=== PATIENT | female | born 1995 | race Two or more races ===

== ENCOUNTER 2016-11-08 20:15 | Emergency (ER) | payer OTHER ==
[~2016-11-08] VITALS: Ht 167.6 cm; Wt 63.0 kg
[2016-11-08 20:16] VITALS: BP 122/75
[2016-11-08 21:48] LABS: APPEARANCE,URINE Slightly Cloudy (CLEAR); BILIRUBIN,URINE Negative (NEGATIVE); BLOOD, URINE Large Ery/uL (NEGATIVE); COLOR,URINE Red (YELLOW); KETONES,URINE Negative (NEGATIVE); LEUKOCYTE ESTERASE ,URINE Small (NEGATIVE); NITRITE, URINE Negative (NEGATIVE); PH,URINE 8.5 (5.0-8.0); PROTEIN,URINE >=300 mg/dl (NEGATIVE); UGLUCOSE Negative (NEGATIVE); UROBILINOGEN,URINE 0.2 EU/dL (0.2)
[2016-11-08 22:00] LABS: BACTERIA,URINE None seen /HPF (None Seen); HYALINE CASTS, URINE Few /LPF (None Seen); SQUAMOUS EPITHELIAL CELL,UR Rare /HPF (None Seen)
[2016-11-08 22:01] LABS: RBC,URINE 81-100 /HPF (0-2)
[2016-11-08] MEDS ORDERED: PHENAZOPYRIDINE HCL 200 MG TABLET ONE (22:08)
[2016-11-08] MEDS ORDERED: NITROFURANTOIN/NITROFURAN MAC 100 MG CAPSULE ONE (22:08)
[2016-11-08] MEDS ORDERED: IBUPROFEN 600 MG TABLET PO ONE (22:09)
[2016-11-08] MEDS: PHENAZOPYRIDINE HCL 200 MG TABLET PO ONE (22:19)
[2016-11-08] MEDS: IBUPROFEN 600 MG TABLET PO ONE (22:19)
[2016-11-08] MEDS: NITROFURANTOIN/NITROFURAN MAC 100 MG CAPSULE PO ONE (22:20)
== END 2016-11-08 22:39 | disposition home or self-care (01) ==
LOC: ER 20:16
DX: N39.0 Urinary tract infection, site not specified (principal)
CPT/HCPCS: 81000-TC; 84703-TC; 87086-TC; A4606; Z7610